=== PATIENT | male | born 1995 | race Caucasian/White ===

== ENCOUNTER 2024-04-20 09:51 | Emergency (ER) | payer OTHER, SELFPAY ==
[2024-04-20 09:56] VITALS: BP 156/88
[2024-04-20 10:21] VITALS: BMI 23.7
--- NOTE | 2024-04-20 10:38 | ED.GENMED ---
History of Present Illness
General
Chief Complaint: Back Pain
Source: patient
Time Seen by Provider: 04/20/24 10:20
History of Present Illness
History of Present Illness:
28-year-old male with no significant past medical history presenting to the emergency department for evaluation after he was working in his garage yesterday moving boxes, lifted to pick something up and when he went to go stand up straight felt a
sharp pain in his lower back now with pain mainly along the left side and will intermittently radiate down the left leg. Patient took some Advil and Tylenol as well as some topical IcyHot with minimal relief. Denies any history of similar. Denies
fevers or infectious symptoms, focal weakness or numbness, traumatic injuries or falls, saddle anesthesia, bowel or urinary incontinence, active IV drug abuse.
Past History
Past History
ED Past Medical History: None
ED Past Surgical History: None
Social History
Tobacco: Non-smoker
Alcohol: Occasional
Drug: None
Personal:
Living: with family
Employment: Employed
Review of Systems
Review of Systems
All Other Systems: ROS reviewed and negative except as documented in HPI and ROS
Phy Exam
Physical Exam
Physical Exam:
GENERAL: Alert , in no apparent distress at rest but appears very uncomfortable with any movements
EYE: clear conjunctiva b/l
NECK: Supple.
ENT: o/p clr, mmm.
BACK: Limited range of motion 2/2 pain, difficulty standing up straight, no focal tenderness, no midline bony tenderness, no rashes
NEUROLOGICAL: Alert and oriented, no focal neuro deficits. Patellar deep tendon reflexes intact and equal bilaterally, sensation grossly intact and equal to light touch bilateral lower extremities, negative straight leg raise bilateral
SKIN: Warm and dry, skin intact.
MUSCULOSKELETAL: No edema, well perfused. EHL intact bilaterally
PSYCH: Normal and appropriate interaction.
Scores
Heart Failure Risk
Heart Failure Risk Score: Not Applicable
Heart Score for Chest Pain Patients
STEMI patient?: Not applicable
Withdrawal Assessment of Alcohol
Withdrawal Assessment Completed?: Not applicable
Course
Orders/Labs/Results
Orders:
Orders
04/20/24 10:38
Diazepam [Valium] 5 mg PO NOW STA
Vital Signs
Initial and Last Documented VS:
Initial Vital Signs
Temp Pulse Resp BP Pulse Ox
99.0 F 69 16 156/88 98
04/20/24 09:56 04/20/24 09:56 04/20/24 09:56 04/20/24 09:56 04/20/24 09:56
Last Documented Vital Signs
Temp Pulse Resp BP Pulse Ox
99.0 F 69 16 156/88 98
04/20/24 09:56 04/20/24 09:56 04/20/24 09:56 04/20/24 09:56 04/20/24 09:56
MDM/Problems Addressed
Differential Diagnosis Includes:
Lumbar strain, muscle spasm, I do not have concern for cauda equina nor infectious etiology, disc herniation/nerve impingement
MDM/Problems Addressed:
28-year-old male presenting to the emergency department for evaluation of low back pain that started after lifting boxes yesterday and cleaning in his garage. Pain seems to clearly be spasmodic in nature especially given pain with attempted range
of motion. Discussed management of this including steroid taper, anti-inflammatories, muscle relaxants and topical agents. Patient agreeable with this. Offered x-ray imaging however patient declines. Will follow-up with primary care provider as
needed. Precautions with muscle relaxants discussed. Otherwise stable for discharge home.
*Pulse Oximetry
Patient hypoxic: no
*Critical Care Note
Total Time (30-74mins, 75-104mins- exclusive of procedures): Not Applicable
ED Attending Note
-
Portions of this chart may have been created with voice recognition software.� Occasional wrong word or��sound alike� substitutions may have occurred due to the inherent limitations of voice recognition software.
Discharge Plan
Departure
Patient Disposition: Home (Routine Discharge)
Date of Disposition: 04/20/24
Time of Disposition: 10:38
Patient with high blood pressure during this ER visit?: Yes
Discharge Problem:
Low back pain
Instructions: Low Back Pain (DC)
Prescriptions:
New
methylprednisolone [Medrol (Lucio)] 4 mg tablets,dose pack
4 mg PO DIRECTED Qty: 21 0RF
diazepam [Valium] 5 mg tablet
5 mg PO BID PRN (Reason: muscle spasm) Qty: 8 0RF
Referrals:
Mundo Weeks MD [Family Provider] -
Interventions
Interventions:
*Risk Screen - Suicide Last Done: 04/20/24 10:52
*General Assessment Last Done: 04/20/24 10:11
*Neglect/Abuse Screening Last Done: 04/20/24 10:52
ED- Fall Risk Assessment Last Done: 04/20/24 10:11
*ED COVID-19 Vaccine History Last Done: 04/20/24 10:11
*Nursing Disposition Last Done: 04/20/24 10:53
ED-Musculoskeletal Assessment Last Done: 04/20/24 10:21
Discharge Date and Time
Discharge Date/Time: 04/20/24 10:54
Print Language: MALAY
[2024-04-20] MEDS: VALIUM 5 MG PO (10:47)
== END 2024-04-20 10:54 | disposition home or self-care (01) ==
LOC: EMR 09:51
PROVIDERS: EMERGENCY PHYSICIAN Emergency Medicine; FAMILY PHYSICIAN Family Medicine
DX: M54.50 Low back pain, unspecified (principal)
CPT/HCPCS: 99283